=== PATIENT | female | born 1955 | race Caucasian/White ===

== ENCOUNTER 2022-06-09 11:28 | Outpatient (CLI) | payer MEDICARE, BC, SELFPAY ==
[2022-06-09 10:16] LABS: Albumin* 4.7 g/dL (3.3-5.0); Chloride* 105 mmol/L (96-114); Sodium* 139 mmol/L (135-149)
[2022-06-09 10:17] LABS: Potassium* 4.6 mmol/L (3.6-5.1)
[2022-06-09 10:19] LABS: Alanine Aminotransferase* 39 U/L (4-35); Alkaline Phosphatase* 81 U/L (40-150); Aspartate Amino Transferase* 39 U/L (12-35); Bilirubin Total* 0.7 mg/dL (0.1-1.5); Blood Urea Nitrogen* 19 mg/dL (7-30); Carbon Dioxide* 27 mmol/L (20-32); Cholesterol* 220 mg/dL (90-199); Creatinine* 0.7 mg/dL (0.5-1.5); Estimated Glomerular Filt Rate 96 ml/min; Glucose* 92 mg/dL (60-115); Total Protein* 7.8 g/dL (6.0-8.3); Triglycerides* 64 mg/dL (40-149)
[2022-06-09 10:20] LABS: Calcium* 9.6 mg/dL (8.4-10.6); HDL Cholesterol* 106 mg/dL (>=50); LDL Cholesterol Calculated 101 mg/dL (<100)
[2022-06-09 10:35] LABS: Vitamin D 25 Hydroxy* 55 ng/mL (30-80)
== END 2022-06-09 11:29 | disposition home or self-care (01) ==
PROVIDERS: PCP Family Medicine; Visit Provider Family Medicine
DX: Z01.419 Encounter for gynecological examination (general) (routine) without abnormal findings (principal); E78.5 Hyperlipidemia, unspecified; M85.80 Other specified disorders of bone density and structure, unspecified site; N95.2 Postmenopausal atrophic vaginitis; Z12.4 Encounter for screening for malignant neoplasm of cervix
CPT/HCPCS: 80053; 80061; 82306

== ENCOUNTER 2022-08-29 08:55 | Outpatient (CLI) | payer MEDICARE, BC, SELFPAY ==
--- NOTE | 2022-08-29 09:15 | CRLHL7_ITS ---
For Patients: As a result of the Century Cures Act, medical imaging exams and procedure reports are released immediately into your electronic medical record. You may view this report before your referring provider. If you have questions, please contact your health care provider. BILATERAL SCREENING MAMMOGRAM WITH COMPUTER-AIDED DETECTION TECHNIQUE: CC and MLO views were obtained. These mammographic images have been obtained using full-field digital technique. These mammographic images were interpreted with the benefit of computer-aided detection. COMPARISON FILM: 08/02/20, 05/19/19, 05/17/18. FINDINGS: The breasts are almost entirely fatty. IMPRESSION: There is no radiographic evidence for malignancy. ASSESSMENT: BI-RADS Category 1: Negative RECOMMENDATION: Routine screening mammogram in 1 year. A lay language report of this examination will be provided to the patient. TIM BARCENAS M.D. Diagnostic/Nuclear Medicine Radiologist [email or web address] Transcribed: 1:[address]/Dictated by: Tim Barcenas MD @ 08/29/2022 10:20:00 AM (Electronically Signed)
== END 2022-08-29 08:56 | disposition home or self-care (01) ==
LOC: MAMMO 08:57
PROVIDERS: PCP Family Medicine; Visit Provider Family Medicine
DX: Z12.31 Encounter for screening mammogram for malignant neoplasm of breast (principal)
CPT/HCPCS: 77067

== ENCOUNTER 2023-06-11 08:10 | Outpatient (CLI) | payer MEDICARE, BC, SELFPAY | END 2023-06-11 08:11 | disposition home or self-care (01) | LOC: NFLDREF 06-12 12:17 | PROVIDERS: PCP Family Medicine; Referring Provider Family Medicine; Visit Provider Family Medicine | DX: E78.5 Hyperlipidemia, unspecified (principal); M81.0 Age-related osteoporosis without current pathological fracture | CPT/HCPCS: 80053; 80061; 82306 ==

== ENCOUNTER 2023-06-30 11:57 | Outpatient (CLI) | payer MEDICARE, BC, SELFPAY | END 2023-06-30 11:58 | disposition home or self-care (01) | LOC: AMB 07-05 06:51 | PROVIDERS: PCP Family Medicine; Visit Provider Student in an Organized Health Care Education/Training Program | DX: R55 Syncope and collapse (principal) | CPT/HCPCS: A0425; A0427 ==

== ENCOUNTER 2023-06-30 12:25 | Emergency (ER) | payer MEDICARE, BC, SELFPAY ==
[2023-06-30 12:34] VITALS: BP 105/89; PULSE 62; RESP 20; TEMP 36.2; O2SAT 100; BMI 27.5
--- NOTE | 2023-06-30 13:36 | ED_ITS ---
HPI - General Adult General Date Seen: 06/30/23 Chief complaint: Syncope/Fainted Stated complaint: Syncope Time Seen by Provider: 06/30/23 12:34 History of Present Illness HPI narrative: This is a pleasant 68-year-old female who has a past medical history of plaque psoriasis, distant history of basal cell carcinoma (removed), atrophic vaginitis (well controlled on topical estrogen), dyslipidemia (controlled on statin) who presents to the ER today by EMS after having had syncopal or near syncopal events that occurred at [facility] today. She has no history of heart disease, arrhythmia, valvular disease. No history of cancer. No history of known aneurysmal disease, stroke, diabetes. She has been healthy and well lately. She went to give blood and about 10:00 a.m. this morning and called hers. After giving blood she had some cookies and then went to [facility] to go shopping. She recalls that she was walking around [facility] for about 10 or 15 minutes and then she began to feel somewhat lightheaded and weak. She did not have any focal weakness, just generally weak and dizzy. She was in the refrigerator section. She recalls trying to sit down and then waking up on the floor. She does not have any injuries from falling and does not think she had her head. She apparently she slumped to the floor. She tried to get up but then had some more dizzy spells and slumped to the floor again. Bystanders from [employer] responded and they brought her to the service desk. She was resting there with her head down but continued to feel dizzy and somewhat shaky. She was worried that her blood sugar might be off kilter because she has been sensitive to sugar E snacks in the past. EMS was called because of her persistent dizziness. She is not having, and did not have, any chest pain, palpitations, headache, focal weakness, blurry vision. No vomiting. No recent black or bloody stools. Apparently her hematocrit was normal this morning before she gave blood. She is not anticoagulated. She received Zofran in route and nausea is improved. Related Data Home Medications Medication Instructions Recorded Confirmed finasteride 5 mg tablet 5 mg PO QDAY 06/13/22 06/16/23 Previous Rx's Medication Instructions Recorded calcipotriene 0.005 % topical 1 applic topical BID #60 grams 03/18/22 ointment halobetasol propionate 0.05 % 1 applic topical BID #50 grams 03/18/22 topical cream clobetasol 0.05 % topical cream 1 applic topical .PRN #60 grams 04/03/22 secukinumab 150 mg/mL subcutaneous 300 mg (2 mL) subcut Q4W #2 mL 05/13/23 syringe (Cosentyx 300 mg/2 Syringes () estradiol 10 mcg vaginal tablet 10 mcg vaginal 2XW #90 tabs 06/16/23 rosuvastatin 5 mg tablet 5 mg PO QDAY #90 tabs 06/16/23 Allergies Allergy/AdvReac Type Severity Reaction Status Date / Time Alendronate AdvReac Intermediate jaw pain Uncoded 06/16/23 07:17 [facility] Medical History (Updated 06/30/23 @ 15:34 by Jarett Mejia MD) Normal pelvic exam ?Z01.419 - Encounter for gynecological examination (general) (routine) without abnormal findings (ICD-10) Vaginal atrophy ?N95.2 - Postmenopausal atrophic vaginitis (ICD-10) Plaque psoriasis ?L40.0 - Psoriasis vulgaris (ICD-10) Osteoporosis (2012) ?M81.0 - Age-related osteoporosis without current pathological fracture (ICD- 10) Malignant neoplasm of skin (2001) ?C44.90 - Unspecified malignant neoplasm of skin, unspecified (ICD-10) Surgical History (Updated 06/09/22 @ 13:47 by Chela Schaefer) History of stapedectomy (1998) ?Z90.09 - Acquired absence of other part of head and neck (ICD-10) History of parotidectomy (11/2016) ?Z90.49 - Acquired absence of other specified parts of digestive tract (ICD- 10) History of local excision of skin lesion (2001) ?Z98.890 - Other specified postprocedural states (ICD-10) Family History (Updated 06/13/22 @ 06:29 by Kelly Osuna MD) Sister Breast cancer, Onset Age: 65 Carcinoma in situ of anal canal Diabetes Brother Glaucoma Father Stroke, Onset Age: 62 Mother Stroke, Onset Age: 68 Other Lung cancer Social History (Updated 06/16/23 @ 08:33 by Lesvia William ~ [facility]) Narrative: , 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[employer], 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 Exercises 6 times per week- body weight, weights, elliptical Non-smoker Social drinker- 4 / week What is your current living situation?: I presently have a place to live Problems where you live: no known problems In the past 12 months, utilities in danger of being shut off: no In past 12 months, lack of transportation kept you from medical appts, meetings, work, or getting things needed for daily living: no In the past 12 mos, have been you worried that your food would run out before you had money to buy more?: never true In the past 12 mos, the food you bought just didn't last and you didn't have money to buy more?: never true Smoking Status: Former smoker How often does anyone, including family, friends and others, physically hurt you : never How often does anyone, including family, friends and others, insult or talk down to you: never How often does anyone, including family, friends and others, threaten you with harm: never How often does anyone, including family, friends and others, scream or curse at you: never Little interest or pleasure in doing things: not at all Feeling down, depressed, or hopeless: not at all Exam Narrative: Exam Narrative: Constitutional: Appears well-developed and well-nourished. Alert. Conversant, but seems anxious. Tremulous and shaky. Hyperventilating. HENT: Head: Atraumatic. Nose: Nose normal. Mouth/Throat: Oral mucosa is clear and moist. no trismus. Pharynx normal. Tonsils symmetric. No tonsillar enlargement, erythema, or exudate. Eyes: Conjunctivae normal, not pale. EOM normal. Pupils equal, round, and reactive to light. No scleral icterus. Neck: Normal range of motion. Neck supple. No tracheal deviation present. No JVD Cardiovascular: Normal rate, regular rhythm. No gallop. No friction rub. No murmur heard. Symmetric radial and PT artery pulses Pulmonary/Chest: Effort normal. No stridor. No respiratory distress. No wheezes. No rales. No rhonchi . No tenderness. Abdominal: Soft.No distension. No mass. No tenderness. No rebound. No guarding. Musculoskeletal: RUE: Normal range of motion. No tenderness. No deformity LUE: Normal range of motion. No tenderness. No deformity RLE: Normal range of motion. No edema. No tenderness. No deformity LLE: Normal range of motion. No edema. No tenderness. No deformity Lymph: No cervical adenopathy. Neurological: Alert and oriented to person, place, and time. Normal strength. CN II-VII intact. No sensory deficit. GCS eye subscore is 4. GCS verbal subscore is 5. GCS motor subscore is 6. Normal coordination Skin: Skin is warm and dry. No rash noted. No pallor. Normal capillary refill. Skin pink warm and dry in all 4 extremities with normal cap refill. Psychiatric: Normal mood. Normal affect. Const: Vital Signs, click to edit/add: Vital Signs - 24 hr 06/30/23 12:34 06/30/23 15:02 Temperature 97.1 F L Pulse Rate [Right Pulse Oximeter] 62 70 Respiratory Rate 20 18 Blood Pressure [Ri t Upper Arm] 105/89 134/55 L Pulse Oximetry 100 99 Oxygen Delivery Me thod Room Air Course Course ED Course: Recheck-feeling much better after Ativan and fluids. Tremors gone. Passed ambulation trial. No dizziness or presyncope. Vital Signs Vital signs: Initial Vital Signs Temperature 97.1 F L 06/30/23 12:34 Temperature Source Temporal Artery Scan 06/30/23 12:34 Pulse Rate 62 06/30/23 12:34 Pulse Rhythm Regular 06/30/23 12:34 Respiratory Rate 20 06/30/23 12:34 Blood Pressure 105/89 06/30/23 12:34 Blood Pressure Mean 94 06/30/23 12:34 Blood Pressure Position Semi-Fowlers 06/30/23 12:34 Pulse Oximetry 100 06/30/23 12:34 Oxygen Delivery Method Room Air 06/30/23 12:34 Vital Signs Temperature 97.1 F L 06/30/23 12:34 Pulse Rate 62 06/30/23 12:34 Respiratory Rate 20 06/30/23 12:34 Blood Pressure 105/89 06/30/23 12:34 Pulse Oximetry 100 06/30/23 12:34 Oxygen Delivery Method Room Air 06/30/23 12:34 Temperature 97.1 F L 06/30/23 12:34 Pulse Rate 70 06/30/23 15:02 Respiratory Rate 18 06/30/23 15:02 Blood Pressure 134/55 L 06/30/23 15:02 Pulse Oximetry 99 06/30/23 15:02 Oxygen Delivery Method Room Air 06/30/23 12:34 Medications Administered Medications: Discontinued Medications Generic Name Dose Route Start Last Admin Trade Name Coni PRN Reason Stop Dose Admin Sodium Chloride 1,000 mls @ 1,000 mls/hr 06/30/23 13:06 06/30/23 14:52 0.9 % Sodium Chloride 1000 Ml IV 06/30/23 14:05 Infused .Q1H DARSHAN Infusion Lorazepam 0.5 mg 06/30/23 13:06 06/30/23 13:38 Lorazepam 2 Mg/Ml Inj IVP 06/30/23 13:07 0.5 mg ONCE ONE Administration Medical Decision Making MDM Narrative Medical decision making narrative: This patient presents for evaluation of a syncopal event that occurred this morning about a half an hour after she had donated blood and was subsequently walk around the grocery store.. A broad differential was considered. History provided suggests a benign cause of syncope. Likely orthostatic. No murmurs . Initial ECG shows normal sinus rhythm and no dysrhythmogenic abnormality such as WPW, prolonged QT, Brugada syndrome, and no ischemia. No symptoms/findings concerning for cardiac ischemia or ACS . No headache or other neurologic symptoms to suggest subarachnoid , stroke . No reported seizure-like activity or postictal phase. playground monitor while the patient here in the ER sh owed no dysrhythmia or ectopy. A broad differential diagnosis was considered including SVT, Atrial fibrillation, ventricular arrhythmia, thyroid disease, acute electrolyte abnormality, drugs/medications, medication side effect, anemia, heart disease, PE, among others. The workup and exam here in ED shows low risk for dangerous cause of the patient's syncope, and no risks factors to warrant admission. Clinical judgement suggests that supportive outpatient management is indicated. Recommend follow up with her PCP or return to the ER if any recurrent dizzy spells or fainting spells occur.. Questions answered and return precautions given to patient and her . Lab Data Labs: Lab Results 06/30/23 Range/Units 13:44 WBC 11.31 H (4.50-11.00) K/uL RBC 3.95 L (4.00-5.20) m/uL Hgb 11.4 L (12.0-16.0) gm/dL Hct 34.6 (33.0-51.0) % MCV 88 (80-100) fL MCH 29 (26-34) pg MCHC 33 (32-36) gm/dL RDW Coeff of Marie 13.5 (11.5-15.5) % Plt Count 261 (140-440) K/uL Neut % (Auto) 77.4 H (42.0-72.0) % Lymph % (Auto) 13.7 L (20-44) % [place] % (Auto) 8.1 (0.0-11.0) % Eos % (Auto) 0.1 (0.0-7.0) % Baso % (Auto) 0.4 (0.0-3.0) % Neut # (Auto) 8.80 H (1.7-7.0) K/uL Lymph # (Auto) 1.50 (0.90-2.90) K/uL [place] # (Auto) 0.90 (0.00-0.90) K/UL Eos # (Auto) 0.00 (0.00-0.50) K/uL Baso # (Auto) 0.00 (0.00-0.30) K/uL Abs Immat Gran (auto) 0.00 (0.00-0.30) K/uL Imm/Tot Granulo (auto) 0.3 % Sodium 135 (135-149) mmol/L Potassium 4.0 (3.6-5.1) mmol/L Chloride 107 (96-114) mmol/L Carbon Dioxide 20 (20-32) mmol/L Anion Gap 8 (7-15) mEq/L BUN 21 (7-30) mg/dL Creatinine 0.7 (0.5-1.5) mg/dL Estimated Creat Clear 45.78 Estimated GFR 95 ml/min Glucose 173 H (60-115) mg/dL Calcium 8.5 (8.4-10.6) mg/dL Troponin I < 0.01 L (0.01-0.04) ng/mL TSH 1.370 (0.270-4.200) uIU/mL ECG Data Attestation: I personally reviewed and interpreted this ECG as follows: Interpretation: Normal sinus rhythm rate 63 NJ 156 QRS axis normal axis. No pathologic Q-waves. ST segment/T wave: No ST segment elevation or depression. QTc: 458 No delta waves. No Brugada syndrome. Discharge Plan Discharge Clinical Impression: Syncope Patient Disposition: Home, Self-Care Condition: Stable Instructions: Syncope (DC) Additional Instructions: As we discussed, rest for the remainder of today. Eat healthy food and drink plenty of liquids. If you have any more dizzy spells, fainting, palpitations, chest pains, trouble breathing, or any other concerning symptoms, please return to the ER right away. Prescriptions: No Action finasteride 5 mg tablet 5 mg PO QDAY rosuvastatin 5 mg tablet 5 mg PO QDAY Qty: 90 3RF estradiol 10 mcg tablet 10 mcg vaginal 2XW Qty: 90 1RF halobetasol propionate 0.05 % cream 1 applic topical BID Qty: 50 0RF calcipotriene 0.005 % ointment 1 applic topical BID Qty: 60 0RF Rx Instructions: rub in gently and completely clobetasol 0.05 % cream 1 applic topical .PRN Qty: 60 1RF Cosentyx (2 Syringes) 150 mg/mL syringe 300 mg subcut Q4W Qty: 2 1RF Rx Instructions: start 4 wks after last weekly dose;inject [id number] doses each in different thigh/upper arm/abdominal areas Follow Up/Referrals: Kelly Osuna MD [Primary Care Provider] - Stand Alone Forms: [employer] Info Instructions
[2023-06-30] MEDS: LORazepam 2 MG/ML inj 0.5 MG IVP (13:38)
[2023-06-30] MEDS: 0.9 % SODIUM CHLORIDE 1000 ml 1,000 ML IV (13:38)
[2023-06-30 13:53] LABS: Basophils Percent Auto 0.4 % (0.0-3.0); Eosinophils Percent Auto 0.1 % (0.0-7.0); Hematocrit 34.6 % (33.0-51.0); Hemoglobin* 11.4 gm/dL (12.0-16.0); Immature Granulocytes Pct Auto 0.3 %; Lymphocytes Percent Auto 13.7 % (20-44); Mean Corpuscular HGB Conc 33 gm/dL (32-36); Mean Corpuscular Hemoglobin 29 pg (26-34); Mean Corpuscular Volume 88 fL (80-100); Monocytes Percent Auto 8.1 % (0.0-11.0); Neutrophils Percent Auto 77.4 % (42.0-72.0); Platelet Count* 261 K/uL (140-440); RDW Coefficient of Variation % 13.5 % (11.5-15.5); Red Blood Count 3.95 m/uL (4.00-5.20); White Blood Count* 11.31 K/uL (4.50-11.00)
[2023-06-30 14:01] LABS: Slide Review Reflex No
[2023-06-30 14:14] LABS: Chloride* 107 mmol/L (96-114)
[2023-06-30 14:15] LABS: Sodium* 135 mmol/L (135-149)
[2023-06-30 14:17] LABS: Creatinine* 0.7 mg/dL (0.5-1.5); Est. Creatinine Clearance* 45.78; Estimated Glomerular Filt Rate 95 ml/min
[2023-06-30 14:18] LABS: Anion Gap 8 mEq/L (7-15); Blood Urea Nitrogen* 21 mg/dL (7-30); Calcium* 8.5 mg/dL (8.4-10.6); Carbon Dioxide* 20 mmol/L (20-32); Glucose* 173 mg/dL (60-115)
[2023-06-30 14:35] LABS: Troponin I* < 0.01 ng/mL (0.01-0.04)
[2023-06-30 15:02] VITALS: BP 134/55; PULSE 70; RESP 18; O2SAT 99
== END 2023-06-30 15:46 | disposition home or self-care (01) ==
PROVIDERS: Emergency Provider Emergency Medicine; PCP Family Medicine
DX: R55 Syncope and collapse (principal)
CPT/HCPCS: 36415; 80048; 84443; 84484; 85025; 96361; 96374; 99283; 99284; J2060; J7030

== ENCOUNTER 2023-08-31 08:56 | Outpatient (CLI) | payer MEDICARE, BC, SELFPAY ==
--- NOTE | 2023-08-31 09:15 | MM_ITS ---
Final Report Patient: JEAN ROTH Facility:?[facility] Patient ID:?[id number] :?[id number] Study:?XRay Breast Bilateral 3D W/CAD-08/31/2023 9:16:33 AM Ordering Physician:Kelly Whitlock Final Report: BILATERAL SCREENING MAMMOGRAM WITH COMPUTER-AIDED DETECTION AND TOMOSYNTHESIS TECHNIQUE: CC and MLO views were obtained. These mammographic images have been obtained using full-field digital technique. These mammographic images were interpreted with the benefit of computer-aided detection. Breast Tomosynthesis was used in this interpretation. COMPARISON FILM: 08/29/22, 08/27/21, 08/02/20. FINDINGS: There are scattered areas of fibroglandular density. IMPRESSION: There is no radiographic evidence for malignancy. ASSESSMENT: BI-RADS Category 1: Negative RECOMMENDATION: Routine screening mammogram in 1 year. A lay language report of this examination will be provided to the patient. Hugo Sarha M.D. Diagnostic Radiologist [email or web address] DSM/sp R& Transcribed: 5:12 p.m. SP/Dictated by: Hugo Sarah MD @ 08/31/2023 10:49:00 AM SP/Dictated by: Hugo Sarah MD @ 08/31/2023 10:49:00 AM (Electronic Signature)
== END 2023-08-31 08:57 | disposition home or self-care (01) ==
LOC: MAMMO 08:57
PROVIDERS: PCP Family Medicine; Visit Provider Family Medicine
DX: Z12.31 Encounter for screening mammogram for malignant neoplasm of breast (principal)
CPT/HCPCS: 77063; 77067

== ENCOUNTER 2024-06-14 08:48 | Outpatient (CLI) | payer MEDICARE, BC, SELFPAY | END 2024-06-14 08:49 | disposition home or self-care (01) | LOC: NFLDREF 06-15 00:27 | PROVIDERS: PCP Family Medicine; Referring Provider Family Medicine; Visit Provider Family Medicine | DX: M81.0 Age-related osteoporosis without current pathological fracture (principal); E78.5 Hyperlipidemia, unspecified; R53.83 Other fatigue | CPT/HCPCS: 80053; 80061; 82306 ==

== ENCOUNTER 2024-06-14 10:55 | Outpatient (REF) | payer MEDICARE, BC, SELFPAY ==
[2024-06-16 13:49] LABS: QuantiFERON Mitogen minus NIL 9.94 IU/mL; QuantiFERON NIL 0.06 IU/mL; Quantiferon TB Gold Plus Negative (Negative)
== END 2024-06-14 10:56 | disposition home or self-care (01) ==
LOC: NPINS 10:55
PROVIDERS: PCP Family Medicine; Visit Provider Dermatology
DX: Z79.899 Other long term (current) drug therapy (principal); M81.0 Age-related osteoporosis without current pathological fracture; E78.5 Hyperlipidemia, unspecified; R53.83 Other fatigue
CPT/HCPCS: 86480

== ENCOUNTER 2024-09-01 12:17 | Outpatient (CLI) | payer MEDICARE, BC, SELFPAY | END 2024-09-01 12:18 | disposition home or self-care (01) | LOC: MAMMO 12:19 | PROVIDERS: PCP Family Medicine; Visit Provider Family Medicine | DX: Z12.31 Encounter for screening mammogram for malignant neoplasm of breast (principal); M81.0 Age-related osteoporosis without current pathological fracture; M85.89 Other specified disorders of bone density and structure, multiple sites | CPT/HCPCS: 77063; 77067; 77080 ==

== ENCOUNTER 2025-06-19 08:35 | Outpatient (CLI) | payer MEDICARE, SELFPAY | END 2025-06-19 08:36 | disposition home or self-care (01) | LOC: NFLDREF 06-23 08:14 | PROVIDERS: PCP Family Medicine; Referring Provider Family Medicine; Visit Provider Family Medicine | DX: E78.5 Hyperlipidemia, unspecified (principal); M81.0 Age-related osteoporosis without current pathological fracture; R79.89 Other specified abnormal findings of blood chemistry | CPT/HCPCS: 80053; 80061; 82306 ==